=== PATIENT | female | born 1925 | race Caucasian/White ===

== ENCOUNTER 2017-01-20 07:05 | Inpatient (IN) | payer MEDICARE, OTHER ==
[2017-01-20] MEDS: SODIUM CHLORIDE 0.9% FLUSH 10 ML SOL IV PRN (07:15)
[2017-01-20] MEDS ORDERED: ONDANSETRON HCL 4 MG/2 ML SOL ONE (07:29)
[2017-01-20] MEDS ORDERED: ONDANSETRON HCL 4 MG/2 ML SOL IV ONE (07:29)
[2017-01-20 07:30] LABS: BASOPHILS % (AUTO) 1 % (0-3); EOSINOPHILS % (AUTO) 2 % (0-9); HEMATOCRIT 27 % (35-47); MEAN CORPUSCULAR VOLUME 86 fL (81-99); MONOCYTES % (AUTO) 10.1 % (0-12)
[2017-01-20 07:33] LABS: ALBUMIN 2.8 gm/dl (3.4-5.0); CALCIUM 8.6 mg/dl (8.5-10.1); POTASSIUM 5.8 mMol/L (3.5-5.1)
[2017-01-20] MEDS ORDERED: SODIUM CHLORIDE 0.9% 1000ML 1,000 ML IV ONE ×2 (07:36→07:50)
[2017-01-20] MEDS ORDERED: HYDROMORPHONE HCL 2 MG/ML SOL IV ONE (08:10)
[2017-01-20] MEDS ORDERED: HYDROMORPHONE HCL 2 MG/ML SOL ONE (08:32)
[2017-01-20 09:05] LABS: APPEARANCE,URINE Cloudy; BILIRUBIN,URINE NEGATIVE (NEGATIVE); COLOR,URINE Light yellow; GLUCOSE, URINE (UA) NEGATIVE (NEGATIVE); KETONES,URINE NEGATIVE (NEGATIVE); LEUKOCYTE ESTERASE ,URINE 3+ (NEGATIVE); NITRATE,URINE NEGATIVE (NEGATIVE); OCCULT BLOOD,URINE 1+ (NEG-TRACE); UROBILINOGEN,URINE 0.2 (0.2-1.0 EU)
[2017-01-20 09:12] LABS: RBC,URINE UNABLE (0-3AV/HPF)
[2017-01-20 09:13] LABS: WBC,URINE TNTC (0-5AV/HPF)
[2017-01-20] MEDS ORDERED: LEVOFLOXACIN 500 MG TAB PO ONE (09:26)
[2017-01-20] MEDS ORDERED: LEVOFLOXACIN 500 MG TAB ONE (09:26)
[2017-01-20] MEDS ORDERED: KETOROLAC TROMETHAMINE 30 MG/ML SOL IV ONE (11:00)
[2017-01-20] MEDS ORDERED: IBUPROFEN 400 MG TAB ONE (11:13)
[2017-01-20] MEDS: IBUPROFEN 400 MG TAB PO PRN ×2 (11:18→17:31)
[2017-01-20] MEDS ORDERED: INSULIN HUMAN REGULAR 100 U/ML SOL IV ONE (12:35)
[2017-01-20] MEDS ORDERED: DEXTROSE 50% 1 VIAL SOL IV ONE ×2 (12:35→12:39)
[2017-01-20] MEDS ORDERED: INSULIN HUMAN REGULAR 100 U/ML SOL ONE (12:40)
[2017-01-20 13:03] LABS: ALBUMIN 2.4 gm/dl (3.4-5.0); CALCIUM 8.1 mg/dl (8.5-10.1)
[2017-01-20 13:07] LABS: POTASSIUM 5.6 mMol/L (3.5-5.1)
[2017-01-20 13:18] LABS: HEMATOCRIT 27 % (35-47)
[2017-01-20 13:19] LABS: EOSINOPHILS % (AUTO) 1 % (0-9); MEAN CORPUSCULAR HGB CONC 32.8 gm/dl (32.0-36.0); MEAN CORPUSCULAR VOLUME 91 fL (81-99); MONOCYTES % (AUTO) 6.4 % (0-12); NEUTROPHILS % (AUTO) 79.7 % (37-80)
[2017-01-20 13:20] LABS: BASOPHILS % (AUTO) 1 % (0-3)
[2017-01-20] MEDS: DEXTROSE/SALINE 0.9% 1,000 ML IV SCH ×2 (13:37→23:14)
[2017-01-20] MEDS: PANTOPRAZOLE SODIUM 40 MG ECT PO SCH (14:09)
[2017-01-20] MEDS: ACETAMINOPHEN 500 MG 500 MG TAB PO SCH ×2 (14:09→20:58)
[2017-01-20] MEDS: AMLODIPINE 5 MG TAB PO SCH (14:10)
[2017-01-20] MEDS: MELATONIN 3 MG TAB PO SCH (20:58)
[2017-01-20] MEDS ORDERED: TOLTERODINE TARTRATE 2 MG ER CAPSULE PO SCH (21:00)
[2017-01-21] MEDS: IBUPROFEN 400 MG TAB PO PRN ×2 (02:16→18:01)
[2017-01-21 07:37] LABS: CALCIUM 7.9 mg/dl (8.5-10.1); POTASSIUM 5.3 mMol/L (3.5-5.1)
[2017-01-21 07:58] LABS: BASOPHILS % (AUTO) 1 % (0-3); EOSINOPHILS % (AUTO) 2 % (0-9); HEMATOCRIT 24 % (35-47); MEAN CORPUSCULAR VOLUME 91 fL (81-99); MONOCYTES % (AUTO) 6.9 % (0-12); NEUTROPHILS % (AUTO) 72.4 % (37-80)
[2017-01-21] MEDS ORDERED: LISINOPRIL 5 MG TAB PO SCH (09:00)
[2017-01-21] MEDS ORDERED: LEVOFLOXACIN 500 MG TAB PO SCH (09:00)
[2017-01-21] MEDS: AMLODIPINE 5 MG TAB PO SCH (09:15)
[2017-01-21] MEDS: LEVOFLOXACIN 500 MG TAB PO SCH (09:15)
[2017-01-21] MEDS: PANTOPRAZOLE SODIUM 40 MG ECT PO SCH (09:15)
[2017-01-21] MEDS: ACETAMINOPHEN 500 MG 500 MG TAB PO SCH ×3 (09:16→20:13)
[2017-01-21] MEDS: SODIUM CHLORIDE 0.9% FLUSH 10 ML SOL IV PRN (20:12)
[2017-01-21] MEDS: MELATONIN 3 MG TAB PO SCH (20:12)
[2017-01-22 06:26] VITALS: BP 180/77; PULSE 74; RESP 16; TEMP 98; O2SAT 95
[2017-01-22 07:36] LABS: CALCIUM 8.6 mg/dl (8.5-10.1)
[2017-01-22] MEDS: AMLODIPINE 5 MG TAB PO SCH (08:55)
[2017-01-22] MEDS: LEVOFLOXACIN 500 MG TAB PO SCH (08:56)
[2017-01-22] MEDS: ACETAMINOPHEN 500 MG 500 MG TAB PO SCH ×2 (08:56→14:31)
[2017-01-22] MEDS: PANTOPRAZOLE SODIUM 40 MG ECT PO SCH (08:56)
[2017-01-22 09:37] LABS: BASOPHILS % (AUTO) 1 % (0-3); EOSINOPHILS % (AUTO) 1 % (0-9); HEMATOCRIT 33 % (35-47); MEAN CORPUSCULAR HGB CONC 33.5 gm/dl (32.0-36.0); MEAN CORPUSCULAR VOLUME 93 fL (81-99); NEUTROPHILS % (AUTO) 77.5 % (37-80)
== END 2017-01-22 15:25 | DRG 641 ==
LOC: ED 07:05 → SUPCPDRO 07:05 → ACUTE CARE 10:13 → UNDOADMIN 10:13 → ACUTE CARE 11:15
PROVIDERS: ADMIT Family Medicine; ATTEND Family Medicine
PROC: F01ZBZZ Bed Mobility Assessment (ICD-10-PCS; principal; 2017-01-20)
PROC: F01ZDFZ Gait and/or Balance Assessment using Assistive, Adaptive, Supportive or Protective Equipment (ICD-10-PCS; 2017-01-20)
PROC: F01ZCZZ Transfer Assessment (ICD-10-PCS; 2017-01-20)
DX: E86.0 Dehydration (principal); N39.0 Urinary tract infection, site not specified; N30.00 Acute cystitis without hematuria; E87.5 Hyperkalemia; M25.562 Pain in left knee; M25.572 Pain in left ankle and joints of left foot; M25.551 Pain in right hip; W18.30XA Fall on same level, unspecified, initial encounter; D64.9 Anemia, unspecified; R53.1 Weakness; M25.552 Pain in left hip; F10.97 Alcohol use, unspecified with alcohol-induced persisting dementia; E87.1 Hypo-osmolality and hyponatremia; N18.9 Chronic kidney disease, unspecified; I12.9 Hypertensive chronic kidney disease with stage 1 through stage 4 chronic kidney disease, or unspecified chronic kidney disease
CPT/HCPCS: 36415; 70450; 71010; 72070; 72120; 72125; 73502; 73560; 73600; 73620; 80048; 80053; 81001; 84484; 85025; 85610; 85730; 87077; 87088; 87186; 93005; 96365; 96366; 96374; 96375; 99284; 99285; J1170; J1815; J1885; J2405; L0130